=== PATIENT | male | born 1990 | race Hispanic/Latino ===

== ENCOUNTER 2016-05-06 20:50 | Emergency (ER) ==
--- NOTE | 2016-05-06 23:55 | PROVIDER DOCUMENTATION ---
HPI-Work Related Injury - General Source: patient - History of Present Illness-Work Injury Location of Pain/Injury: reports: hand(s) (right), lower extremity (right upper leg) Pain Radiation: reports: no radiation Quality of Pain: reports: burning, other (itchy) Severity: reports: moderate Onset/Duration: reports: this afternoon Timing: reports: still present <Jeff Miramontes - Last Filed: 05/06/16 23:51> <Garfield Moser - Last Filed: 05/07/16 00:00> - General Chief Complaint: Allergic Reaction Stated Complaint: CHEMICAL BURN Time Seen by Provider: 05/06/16 23:45 Allergies/Adverse Reactions: Patient Allergies Allergy/AdvReac Type Severity Reaction Status Date / Time calamine Allergy SWELLING Verified 08/30/15 22:46 Home Medications: Home Medication List Medication Instructions Recorded Confirmed Last Taken Type Hydroxyzine Pamoate [Vistaril] 25 mg PO TID #30 capsule 08/26/15 08/30/15 Rx Methylprednisolone [Medrol Dosepak] 4 mg PO DIRECTED #1 package 08/26/15 Rx Prednisone 20 mg PO BID #10 tablet 08/30/15 Unknown Rx Hydroxyzine [Atarax] 25 mg PO TID #30 tablet 05/06/16 Unknown Rx Prednisone 10 mg PO BID #14 tablet 05/06/16 Unknown Rx - History of Present Illness-Work Injury Nature of PresentingProblem: 25 y/o M presents to the ED with a work related injury. Pt states she was using a hose to clean with with thing splashed on his pants and irhgt hand. ( Jeff Miramontes) Review of Systems - Adult - REVIEW OF SYSTEMS - ADULT Constitutional: denies: chills, fever Eyes: reports: no symptoms reported Ears, Nose, Mouth & Throat: reports: no symptoms reported Cardiovascular: reports: no symptoms reported Respiratory: reports: no symptoms reported Gastrointestinal: reports: no symptoms reported Genitourinary: reports: no symptoms reported Musculoskeletal: reports: no symptoms reported Integumentary: reports: itching, other (red area on right leg and spots on right hand). denies: hives, rash Neurological: reports: no symptoms reported Psychiatric: reports: no symptoms reported Endocrine: reports: no symptoms reported Hematologic/Lymphatic: reports: no symptoms reported Allergic/Immunologic: reports: no symptoms reported All Other Systems: Reviewed and Negative <Jeff Miramontes - Last Filed: 05/06/16 23:51> Past History - Adult - PAST MEDICAL HISTORY-ADULT Review of Records: reports: Old Records Reviewed, Nursing Assessment Review, Medications Reviewed Major Childhood Illnesses: reports: denies history Other Conditions: reports: denies history - PRIOR SURGERIES/PROCEDURES Surgical/Procedure History: reports: other (left arm graft) - PRIOR HOSPITALIZATIONS Prior Hospitalizations: reports: for other non-related - IMMUNIZATION STATUS Childhood Immunizations: See Nurse Assessment Flu Vaccine: See Nurse Assessment - FAMILY HISTORY Family History: reviewed, not pertinent <Jeff Miramontes - Last Filed: 05/06/16 23:51> Physical Exam-Injury Related - Physical Exam-Injury Related Initial Vital Signs Reviewed: Yes General Appearance: appears well, alert, no apparent distress Eyes: PERRL/EOMI, pink conjunctivae Head, Ears, Nose, Mouth & Throat: moist mucous membranes, normal ENT inspection , TMs normal, pharynx normal Neck: non-tender, full range of motion, supple, normal inspection Respiratory: lungs clear, normal breath sounds, no pleuratic chest pain, no respiratory distress, no accessory muscle use Cardiovascular: normal peripheral pulses, regular rate, rhythm Abdominal Exam: normal bowel sounds, non tender, soft Back Exam: normal inspection, no CVA tenderness, no vertebral tenderness Extremity: normal range of motion, non-tender, normal gait, normal inspection Integumentary: normal color, warm/dry, other (8 X 8 red section anterior thigh and several red spots on right hand) Neurologic: grossly normal, no motor/sensory deficits Psych/Mental Status: normal mood/affect, normal thought content, normal thought process, oriented x 3 <Jeff Miramontes - Last Filed: 05/06/16 23:51> Progress <Jeff Miramontes - Last Filed: 05/06/16 23:51> <Garfield Moser - Last Filed: 05/07/16 00:00> - PLAN OF CARE/RESULTS Progress/Plan/Lab Results: Vital Signs Temp Pulse Resp BP Pulse Ox 05/06/16 20:53 97.9 F 77 18 156/99 99 calamine Allergy (Verified 08/30/15 22:46) SWELLING Hydroxyzine Pamoate [Vistaril] 25 mg PO TID #30 capsule 08/26/15 Methylprednisolone [Medrol Dosepak] 4 mg PO DIRECTED #1 package 08/26/15 Prednisone 20 mg PO BID #10 tablet 08/30/15 (Jeff Miramontes) Departure <Jeff Miramontes - Last Filed: 05/06/16 23:51> - Departure Time of Disposition Order: 23:57 Certified Medical Emergency: Emergent <Garfield Moser - Last Filed: 05/07/16 00:00> - Departure DIAGNOSIS: Contact burn Contact dermatitis Qualifiers: Contact dermatitis type: unspecified Contact dermatitis trigger: unspecified trigger Qualified Code(s): L25.9 - Unspecified contact dermatitis, unspecified cause Disposition: HOME 01 Condition: Stable Additional Instructions: ED Follow Up Instructions: You have been treated by a care provider in the Emergency Department. These instructions are being provided to you so you can have an understanding of how to care for yourself upon discharge. Upon discharge from the Emergency Department, you are responsible for making arrangements for follow-up care by a physician of your choice. Take all prescribed medications as directed. Return to the Emergency Department immediately for any new or worsening symptoms. You may call the Physician Referral phone number at [phone] to obtain a list of Physicians who are taking new patients. Prescriptions: Hydroxyzine [Atarax] 25 mg PO TID #30 tablet Prednisone 10 mg PO BID #14 tablet Referrals: Javon Restrepo MD [STAFF PHYSICIAN] - None,PCP [Primary Care Provider] - Forms: Return to School/Parent Work Instructions: Contact Dermatitis, [id number] Attestation - Scribe Verification/Attestation Scribe:: Jeff Miramontes Acting as Scribe for:: Garfield Moser Scribe documention review:: This chart was documented by a scribe and accurately reflects the service the provider performed and the decisions made by the provider. <Jeff Miramontes - Last Filed: 05/06/16 23:51> Physician Attestation
[2016-05-06] MEDS ORDERED: DEPO-MEDROL IM ONE (23:57)
[2016-05-07 00:05] VITALS: BP 128/85
== END 2016-05-07 00:20 | disposition home or self-care (01) ==
LOC: P.ED 20:50
DX: T24.111A Burn of first degree of right thigh, initial encounter (principal); L25.9 Unspecified contact dermatitis, unspecified cause; T65.91XA Toxic effect of unspecified substance, accidental (unintentional), initial encounter; L29.9 Pruritus, unspecified; Z79.899 Other long term (current) drug therapy; Z79.52 Long term (current) use of systemic steroids
CPT/HCPCS: 96372; J1030

== ENCOUNTER 2016-05-08 02:01 | Emergency (ER) ==
[2016-05-08 02:23] VITALS: BP 130/73
--- NOTE | 2016-05-08 02:40 | PROVIDER DOCUMENTATION ---
HPI-Rash/Wound/ReCheck - General Chief Complaint: Return/Recheck Stated Complaint: CHEMICAL BURN Time Seen by Provider: 05/08/16 02:25 Source: patient Allergies/Adverse Reactions: Allergies Allergy/AdvReac Type Severity Reaction Status Date / Time calamine Allergy SWELLING Verified 05/08/16 02:22 Home Medications: Home Medication List Medication Instructions Recorded Confirmed Last Taken Type Famotidine [Pepcid] 20 mg PO BID #10 tablet 05/08/16 Unknown Rx Prednisone 20 mg PO BID #10 tablet 05/08/16 Unknown Rx Sulfamethoxazole/Trimethoprim 2 each PO BID #40 tablet 05/08/16 Unknown Rx [Bactrim Ds Tablet] - History of Present Illness-Dermatology Nature of Presenting Problem: 25 Y/O M presents to ED with Rash. Pt states that he is here for a return visit. Rash to right upper leg onset Wednesday. previous visits to ED was given a steroid shot, states he used something similar to calamine lotion with no relief rash began to diffuse to arm and on thigh. 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 Location: reports: lower extremity Severity: reports: severe Onset/Duration: reports: 3 days ago Timing: reports: still present Context/Associated Symptoms: reports: rash Identifiable cause?: Yes Modifying Factors: worse with: calamine lotion, topical steriods (HASN'T IMPROVED) Locality of [place]: Work Similar Symptoms Previously?: Yes Recently seen or treated by another doctor?: Yes Review of Systems - Adult - REVIEW OF SYSTEMS - ADULT Constitutional: denies: chills, fever Eyes: reports: no symptoms reported Ears, Nose, Mouth & Throat: reports: no symptoms reported Cardiovascular: reports: no symptoms reported Respiratory: reports: no symptoms reported Gastrointestinal: denies: abdominal pain, diarrhea, nausea, vomiting Genitourinary: denies: frequent UTI's Musculoskeletal: reports: no symptoms reported Integumentary: reports: rash. denies: see HPI, hair loss Neurological: denies: dizziness/vertigo, numbness, paresthesia Psychiatric: denies: no symptoms reported, depression, emotional problems Endocrine: reports: no symptoms reported Hematologic/Lymphatic: reports: no symptoms reported Allergic/Immunologic: reports: no symptoms reported All Other Systems: Reviewed and Negative Past History - Adult - PAST MEDICAL HISTORY-ADULT Review of Records: reports: Old Records Reviewed, Nursing Assessment Review, Medications Reviewed, Social history reviewed & non-contributory. Major Childhood Illnesses: reports: denies history Other Conditions: reports: denies history - PRIOR SURGERIES/PROCEDURES Surgical/Procedure History: reports: other (left arm graft) - PRIOR HOSPITALIZATIONS Prior Hospitalizations: reports: for other non-related - IMMUNIZATION STATUS Childhood Immunizations: See Nurse Assessment Flu Vaccine: See Nurse Assessment - FAMILY HISTORY Family History: reviewed, not pertinent - SOCIAL HISTORY Smoking: non-smoker Substance Use: none/never Alcohol Use Frequency: never Physical Exam-General - PHYSICAL EXAM-ADULT Initial Vital Signs Reviewed: Yes - CONSTITUTIONAL General Appearance: appears well, alert, no apparent distress - EYES Eyes: PERRL/EOMI, pink conjunctivae, fundi clear, no AV nicking - HEAD, EARS, NOSE, MOUTH & THROAT HENMT: normocephalic/atraumatic, moist mucous membranes, normal ENT inspection, TMs normal, pharynx normal - NECK Neck: non-tender, full range of motion, supple, normal inspection - RESPIRATORY Respiratory: chest non-tender, lungs clear, normal breath sounds - CARDIOVASCULAR Cardiovascular: normal peripheral pulses, regular rate, rhythm - GASTROINTESTINAL (ABDOMEN) Abdominal Exam: normal bowel sounds, non tender, soft - LYMPHATIC Lymphatic: no adenopathy - MUSCULOSKELETAL Back Exam: normal inspection, no CVA tenderness, no vertebral tenderness Extremity: normal range of motion, non-tender, normal gait - SKIN Integumentary: rash (PAPULAR DIFFUSED RASH ON RIGHT THIGH AND HAND) - NEUROLOGIC Neurologic: director of recruiting II-XII nml as tested - PSYCHIATRIC Psych/Mental Status: normal mood/affect, normal thought content, normal thought process, oriented x 3 Progress - PLAN OF CARE/RESULTS Progress/Plan/Lab Results: Vital Signs - 24 hr 05/08/16 02:16 Temperature 98.1 F Pulse Rate 68 Respiratory 16 Rate Blood Pressure 130/73 O2 Sat by Pulse 99 Oximetry Departure - Departure Time of Disposition Order: 02:38 DIAGNOSIS: Diffuse papular rash Disposition: HOME 01 Certified Medical Emergency: Emergent Condition: Stable Additional Instructions: ED Follow Up Instructions: You have been treated by a care provider in the Emergency Department. These instructions are being provided to you so you can have an understanding of how to care for yourself upon discharge. Upon discharge from the Emergency Department, you are responsible for making arrangements for follow-up care by a physician of your choice. Take all prescribed medications as directed. Return to the Emergency Department immediately for any new or worsening symptoms. You may call the Physician Referral phone number at [phone] to obtain a list of Physicians who are taking new patients. Prescriptions: Sulfamethoxazole/Trimethoprim [Bactrim Ds Tablet] 2 each PO BID #40 tablet Famotidine [Pepcid] 20 mg PO BID #10 tablet Prednisone 20 mg PO BID #10 tablet Referrals: Etienne Patterson MD [STAFF PHYSICIAN] - Forms: Return to School/Parent Work Instructions: Famotidine tablets or gelcaps, Prednisone tablets, Sulfamethoxazole; Trimethoprim, SMX-TMP tablets, Rash, [id number] Attestation - Scribe Verification/Attestation Scribe:: Yanni Tolbert Acting as Scribe for:: Broderick Nice Scribe documention review:: This chart was documented by a scribe and accurately reflects the service the provider performed and the decisions made by the provider.
== END 2016-05-08 03:00 | disposition home or self-care (01) ==
LOC: P.ED 02:01
DX: R21 Rash and other nonspecific skin eruption (principal)
CPT/HCPCS: 99282